=== PATIENT | male | born 2000 | race Caucasian/White ===

== ENCOUNTER 2020-01-03 18:48 | Emergency (ER) | payer OTHER ==
[~2020-01-03] VITALS: Ht 175.3 cm; Wt 62.9 kg
[2020-01-03 18:49] VITALS: BP 144/70
--- NOTE | 2020-01-03 19:18 | NUR ---
PT RESTING IN [facility] AT THIS TIME WITH GIRLFRIEND AT BS. PT REPORTS THAT THE DOG IS A KNOWN DOG AND THAT THE ANIMAL IS CURRENT ON ALL VACCINES. PT REPORTS RECENT TDAP. PT HAS CALL LIGHT WITHIN REACH AND DENIES ANY OTHER NEEDS AT THIS TIME.
[2020-01-03] MEDS ORDERED: AMOXICILLIN/CLAV 875-125MG TABLET PO STA (19:39)
[2020-01-03] MEDS ORDERED: AMOXICILLIN/CLAV 875-125MG TABLET ONE (19:40)
--- NOTE | 2020-01-03 19:58 | NUR ---
PT DC WITH DC SUMMARY AND SCRIPTS. ALL QUESTIONS ANSWERED. PT AMBULATES TO REGISTRATION DESK WITH STEADY GAIT FOR D/C HOME. PT DENIES ANY OTHER NEEDS PERTAINING TO THIS VISIT. WORK NOTE PROVIDED PER PT REQUEST TO ERP.
== END 2020-01-03 20:04 | disposition home or self-care (01) ==
LOC: ED 19:48
DX: S91.051A Open bite, right ankle, initial encounter (principal); W54.0XXA Bitten by dog, initial encounter; Y93.89 Activity, other specified; Y92.009 Unspecified place in unspecified non-institutional (private) residence as the place of occurrence of the external cause; Y99.8 Other external cause status
CPT/HCPCS: 99283